=== PATIENT | female | born 1960 | race Caucasian/White ===

== ENCOUNTER 2021-05-18 00:26 | Outpatient (CLI) | payer BC, SELFPAY ==
--- NOTE | 2021-05-18 08:00 | DI.MAMMO_ITS ---
Exam(s) MAMMO SCREENING EXAM: MAMMO SCREENING CLINICAL HISTORY: SCREENING FOR BREAST CANCER Z12.39 TECHNIQUE: Bilateral full field digital CC and MLO mammographic images were obtained with 3D tomosyn thesis and utilizing computer aided detection (CAD). COMPARISON: Available for comparison. FINDINGS: Masses/Architectural Distortion: None seen. Microcalcifications: No suspicious pleomorphic-type are seen. Skin Thickening/Nipple Retraction: None. IMPRESSION: 1. No significant interval change with no specific features of malignancy noted. 2. Unless there is more urgent need, screening mammography is recommended, as per [employer] guidelines. BI-RADS Category 1 - Negative Breast Density - Category C - Heterogeneously dense Breast density category C or D implies that the patient has dense breast tissue. Dense breast tissue is very common and is not abnormal but dense breast tissue can make it harder to find cancer on a ma mmogram. Also, dense breast tissue may increase their breast cancer risk. This information about the result of the mammogram report was provided to the patient to raise their awareness. Use this report when you speak with the patient about their risks for breast cancer, which includes their family hist ory. At that time, you may recommend for more screening tests (Ultrasound or MRI) as they might be us eful based on their risk. A negative radiographic report should not delay biopsy if a dominant or clinically suspicious mass is present. Up to ten percent of cancers are not identified on mammography. A negative report may reinforce clinical impression. Adenosis and dense breasts may obscure an underlying neoplasm. False positive reports average 6 to 10%. Patient will receive a letter notifying them of these results.
== END 2021-05-18 00:46 ==
PROVIDERS: Visit Provider Nurse Practitioner
DX: Z12.31 Encounter for screening mammogram for malignant neoplasm of breast (principal)
CPT/HCPCS: 77063; 77067

== ENCOUNTER 2022-02-25 12:44 | Outpatient (REF) | payer BC, SELFPAY ==
[2022-02-25 15:07] LABS: Anion Gap 10.4 mmol/L (3-11); BUN 16 mg/dL (7-18); CO2 29.6 mmol/L (21.0-32.0); CREATININE 0.7 mg/dL (0.55-1.02); Calcium 10.3 mg/dL (8.5-10.1); Calculated LDL 164 mg/dL (<100); Chloride 102 mmol/L (98-107); Cholesterol 280 mg/dL (<200); Estimated GFR 98.95 (mL/min/1.73m2); Glucose 98 mg/dL (74-106); HDL Cholesterol 103 mg/dL (40-60); Potassium 4.2 mmol/L (3.5-5.1); Sodium 142 mmol/L (136-145); Triglyceride 66 mg/dL (<150)
[2022-02-25 15:26] LABS: Vitamin D 25 Total 28.3 ng/mL (30-100)
== END 2022-02-25 12:45 | disposition home or self-care (01) ==
LOC: NCHCN 12:44
PROVIDERS: Visit Provider Nurse Practitioner Family
DX: H00.019 Hordeolum externum unspecified eye, unspecified eyelid (principal); H01.009 Unspecified blepharitis unspecified eye, unspecified eyelid; M47.816 Spondylosis without myelopathy or radiculopathy, lumbar region; G43.909 Migraine, unspecified, not intractable, without status migrainosus; E78.5 Hyperlipidemia, unspecified; E55.9 Vitamin D deficiency, unspecified
CPT/HCPCS: 80048; 80061; 82306

== ENCOUNTER 2022-11-10 15:42 | Outpatient (REF) | payer BC, SELFPAY ==
[2022-11-10 16:15] LABS: Abs Immature Grans 0.04 10^3/uL (0.0-0.06); Absolute Basophil Count 0.04 10^3/uL (0.0-0.2); Absolute Eosinophil Count 0.09 10^3/uL (0.0-0.7); Absolute Lymphocyte Count 0.87 10^3/uL (1.2-3.4); Absolute Monocyte Count 0.56 10^3/uL (0.1-0.8); Absolute Neutrophil Count 7.33 10^3/uL (1.2-6.7); Basophils % 0.4; HGB 11.5 g/dL (11.2-15.7); Immature Grans % 0.4; Lymphocytes % 9.7; MCH 30.5 pg (27.0-33.0); MCHC 32.9 % (32.0-36.0); MCV 93 fL (80-95); MPV 10.3 fL (8.0-11.0); Monocytes % 6.3; Neutrophils % 82.2; Platelet Count 315 10^3/uL (130-400); RBC 3.77 10^6/uL (3.93-5.22); RDW 11.8 % (11.7-14.6); RDW-SD 40.2 fL; WBC 8.93 10^3/uL (4.4-10.8)
[2022-11-10 16:23] LABS: Bilirubin Small (Negative); Blood Small (Negative); Clarity Clear (Clear); Glucose Negative (Negative); Ketones 80 mg/dL (Negative); Leukocyte Esterase Negative (Negative); Nitrite Negative (Negative); pH 5.5 (5-8)
[2022-11-10 16:42] LABS: ALT 24 U/L (14-59); AST 22 U/L (15-37); Albumin 3.5 g/dL (3.4-5.0); Alkaline Phosphatase 98 U/L (46-116); Anion Gap 8.1 mmol/L (3-11); BUN 13 mg/dL (7-18); Bilirubin, Total 0.5 mg/dL (0.2-1.0); CO2 28.9 mmol/L (21.0-32.0); CREATININE 0.7 mg/dL (0.55-1.02); Calcium 9.5 mg/dL (8.5-10.1); Chloride 100 mmol/L (98-107); Estimated GFR 98.34 (mL/min/1.73m2); Glucose 132 mg/dL (74-106); Potassium 3.8 mmol/L (3.5-5.1); Sodium 137 mmol/L (136-145); TSH (W/Ref FT4) 1.12 uIU/mL (0.36-3.74)
[2022-11-10 17:30] LABS: Bacteria Few HPF (Negative); C & S Indicated? No/Sq. Contamination; Casts Negative LPF (Negative); Crystals Negative HPF (Negative); Epithelial Cells Moderate HPF (Negative); Mucus Moderate (Negative)
== END 2022-11-10 15:43 | disposition home or self-care (01) ==
LOC: NCHCN 15:42
PROVIDERS: Visit Provider Nurse Practitioner Family
DX: R05.1 Acute cough (principal); R53.83 Other fatigue; R50.9 Fever, unspecified
CPT/HCPCS: 80053; 81003; 81015; 84443; 85025

== ENCOUNTER 2022-11-11 16:02 | Outpatient (CLI) | payer BC, SELFPAY ==
--- NOTE | 2022-11-11 13:15 | DI.RAD_ITS ---
Exam(s) XR CHEST 2V PA LATERAL EXAM: XR CHEST 2V PA LATERAL CLINICAL HISTORY: COUGH R05.1 FEVER CHILLS R50.9. TECHNIQUE: 2D digital imaging was performed. COMPARISON: No exams were available for comparison FINDINGS: 2 views: Heart size is normal. The mediastinum is not widened. Lungs are clear. No infiltrates nor pleural effusions. IMPRESSION: No acute pulmonary findings. DATA REPOSITORY: RADIATION DOSE DELIVERED:
== END 2022-11-11 16:22 ==
LOC: DI 16:02
PROVIDERS: Visit Provider Nurse Practitioner Family
DX: R05.1 Acute cough (principal); R50.9 Fever, unspecified
CPT/HCPCS: 71046

== ENCOUNTER 2023-03-08 20:20 | Outpatient (REF) | payer BC, SELFPAY ==
[2023-03-08 19:07] LABS: Calculated LDL 172 mg/dL (<100); Cholesterol 291 mg/dL (<200); HDL Cholesterol 109 mg/dL (40-60); Triglyceride 52 mg/dL (<150)
== END 2023-03-08 20:21 | disposition home or self-care (01) ==
LOC: NCHCN 20:20
PROVIDERS: Visit Provider Nurse Practitioner Family
DX: L29.2 Pruritus vulvae (principal); N89.8 Other specified noninflammatory disorders of vagina; Z13.220 Encounter for screening for lipoid disorders
CPT/HCPCS: 80061; 87480; 87510; 87660

== ENCOUNTER → 2023-03-29 00:49 | Outpatient (CLI) | payer BC, SELFPAY ==
--- NOTE | 2023-03-29 08:05 | DI.MAMMO_ITS ---
Exam(s) MAMMO SCREENING EXAM: MAMMO SCREENING CLINICAL HISTORY: SCREENING, Z12.39. TECHNIQUE: Bilateral full field digital CC and MLO mammographic images were obtained with 3D tomosyn thesis and utilizing computer aided detection (CAD). COMPARISON: Prior mammograms were reviewed. FINDINGS: There has been no significant change in the appearance and distribution of the fibroglandular tissue. There are no new spiculated masses nor malignant appearing microcalcification groups. Benign-appearing nodules again noted bilaterally in the lateral aspect of both breasts, probably mariah gn intramammary lymph nodes. There is no significant architectural distortion nor skin thickening-retraction. IMPRESSION: No radiographic evidence of malignancy. BI-RADS Category 1 - Negative Breast Density - Category C - Heterogeneously dense Breast density Category C or D implies that the patient has dense breast tissue. Dense breast tissue can make it harder to find cancer on a mammogram. Dense breast tissue is also associated with an incr eased risk of breast cancer. This information about the result of the mammogram report was provided to the patient to raise their awareness. Use this report when you speak with the patient about their risks for breast cancer, which includes their family history. At that time, you may recommend additional screening tests (Ultrasoun d or MRI) as these tests may add significant information. A negative radiographic report should not delay biopsy if a dominant or clinically suspicious mass is present. Up to ten percent of cancers are not identified on mammography. A negative report may reinforce clinical impression. Adenosis and dense breasts may obscure an underlying neoplasm. False positive reports average 6 to 10%. Patient will receive a letter notifying them of these results.
== END ==
PROVIDERS: Visit Provider Nurse Practitioner Family
DX: Z12.31 Encounter for screening mammogram for malignant neoplasm of breast (principal)
CPT/HCPCS: 77063; 77067

== ENCOUNTER 2024-04-11 00:37 | Outpatient (CLI) | payer BC, SELFPAY ==
--- NOTE | 2024-04-11 13:31 | DI.RAD_ITS ---
Exam(s) XR FOOT RT COMPLETE EXAM: XR FOOT RT COMPLETE CLINICAL HISTORY: Right foot pain,M79.671. TECHNIQUE: 2D digital imaging was performed. COMPARISON: No exams were available for comparison FINDINGS: 3 views No evidence of acute fracture or diastasis of the Lisfranc joint. However, there is significant dege nerative changes in the 1st tarsometatarsal joint, this being the articulation between the base of th e great toe metatarsal and the medial cuneiform. Other tarsometatarsal joints appear unremarkable. There are minimal degenerative changes in the metatarsophalangeal joint of the great toe. Other MTP joints appear unremarkable as do the interphalangeal joints of all toes. No findings seen in the hin dfoot. No inferior calcaneal spur. No pes planus. IMPRESSION: The main finding here is significant degenerative change in the 1st tarsometatarsal joint, this being the articulation between the medial cuneiform and the base of the great toe metatarsal. DATA REPOSITORY: RADIATION DOSE DELIVERED:
== END 2024-04-11 00:57 ==
LOC: DI 00:37
PROVIDERS: PCP Nurse Practitioner Family; Visit Provider Podiatrist
DX: M79.671 Pain in right foot (principal)
CPT/HCPCS: 73630

== ENCOUNTER 2024-05-08 00:44 | Outpatient (CLI) | payer BC, SELFPAY ==
--- NOTE | 2024-05-08 14:20 | DI.RAD_ITS ---
Exam(s) XR FOOT LT COMPLETE EXAM: XR FOOT LT COMPLETE CLINICAL HISTORY: Pain in left foot,m79.672. TECHNIQUE: 2D digital imaging was performed. COMPARISON: CR XR FOOT RT COMPLETE from 04/11/2024 FINDINGS: 3 views No evidence of fracture or diastasis of the Lisfranc joint. There are bony excrescences off of both medial lateral aspects of the base of the great toe metatarsa l but without prominent narrowing of the joint space, as is evident on recent films of the opposite-r ight side. On the lateral aspect of the foot there is a slightly expansile cystic lesion off the proximal latera l aspect of the cuboid bone, best seen on the oblique view. There does not appear to be joint space narrowing at the adjacent calcaneocuboid joint. IMPRESSION: 1. There is a mildly expansile cystic bone lesion measuring approximately 8 x 8 cm on the lateral as pect of the proximal cuboid bone (lateral aspect of the foot). This is most probably not related to degenerative change as there is no narrowing of the adjacent calcaneocuboid joint. Similar finding i s not seen in the opposite-right foot. Recommend follow-up MRI. There are small bony excrescences of both medial and lateral aspects of the base of the great toe met atarsal. Probably developmental as similar but less findings seen in the opposite-right foot on the lateral aspect of the base of the great toe metatarsal of the right foot. DATA REPOSITORY: RADIATION DOSE DELIVERED:
== END 2024-05-08 01:04 ==
LOC: DI 00:44
PROVIDERS: PCP Nurse Practitioner Family; Visit Provider Podiatrist
DX: M79.671 Pain in right foot (principal); M79.672 Pain in left foot
CPT/HCPCS: 73630

== ENCOUNTER 2024-06-04 01:30 | Outpatient (CLI) | payer BC, SELFPAY ==
--- NOTE | 2024-06-04 07:00 | DI.MRI_ITS ---
Exam(s) MR LOWER JOINT LT WO/W EXAM: MR LOWER JOINT LT WO/W CLINICAL HISTORY: bone tumor,neoplasm lt foot, d49.2. TECHNIQUE: Multiplanar multisequence MRI was performed. CONTRAST MATERIAL: IV Contrast: 11 mL of Dotarem contrast administered. COMPARISON: Plain films 08 May 2024 FINDINGS: BONES/JOINTS: No evidence of fracture. No evidence of suspicious bone lesion. Small area of sclerosi s at the lateral proximal cuboid. No joint space narrowing identified. No joint effusion identified. LIGAMENTS: The medial and lateral collateral ligaments are intact. MUSCULOTENDINOUS STRUCTURES: Visualized portion of the planar fascia is unremarkable. The visualized intrinsic muscles and tendons of the foot are unremarkable. SOFT TISSUES: Unremarkable. ENHANCEMENT: No suspicious enhancement identified. IMPRESSION: No evidence of fracture or suspicious bony lesion. No tendon tear identified. DATA REPOSITORY:
[2024-06-04] MEDS: Gadoterate meglumine 20 ML SYRINGE 11 ML IVP (13:20)
[2024-06-04] MEDS: Normal Saline Flush 10 ML SYR IVP (13:21)
== END 2024-06-04 01:50 ==
LOC: DI 01:30
PROVIDERS: PCP Nurse Practitioner Family; Visit Provider Podiatrist
DX: D49.2 Neoplasm of unspecified behavior of bone, soft tissue, and skin (principal)
CPT/HCPCS: 73723

== ENCOUNTER 2024-07-31 14:23 | Outpatient (REF) | payer BC, SELFPAY ==
--- NOTE | 2024-07-31 12:00 | PAPFT_PTH ---
PATIENT: Arielle Castro LOC: NCN #:[id number] AGE/SX: 64/F ROOM: RE07/31/[address]: Mariana Loo : 1960 BED: DIS: 07/31/2024 SPEC #: [id number] RECD: 07/31/24 17:48 STATUS: DOTTIE REQ #: [id number] LYNN: 07/31/24 12:[address]: Mariana Loo DEPT: [facility] Cytology RECD BY: Shavon Spain Tissues: 1 - CX/ENDOCX FOR PAP SMEARS Procedures: PAP THIN PREP/UVM Screening HPV DNA PROBE Comments: [id number] (HPV 16 & 18/45)
[2024-07-31 16:21] LABS: Abs Immature Grans 0.01 10^3/uL (0.0-0.06); Absolute Basophil Count 0.02 10^3/uL (0.0-0.2); Absolute Eosinophil Count 0.06 10^3/uL (0.0-0.7); Absolute Lymphocyte Count 0.43 10^3/uL (1.2-3.4); Absolute Monocyte Count 0.35 10^3/uL (0.1-0.8); Absolute Neutrophil Count 3.96 10^3/uL (1.2-6.7); Basophils % 0.4 %; Eosinophils % 1.2 %; HCT 36.8 % (36.0-46.0); Immature Grans % 0.2 %; Lymphocytes % 8.9 %; MCH 30.8 pg (27.0-33.0); MCHC 32.6 % (32.0-36.0); MCV 95 fL (80-95); MPV 11.1 fL (8.0-11.0); Monocytes % 7.2 %; Neutrophils % 82.1 %; Platelet Count 191 10^3/uL (130-400); RBC 3.89 10^6/uL (3.93-5.22); RDW 12.8 % (11.7-14.6); RDW-SD 44.7 fL; WBC 4.83 10^3/uL (4.4-10.8)
[2024-07-31 16:48] LABS: ALT 23 U/L (14-59); AST 23 U/L (15-37); Alkaline Phosphatase 72 U/L (46-116); Anion Gap 9.6 mmol/L (3-11); BUN 15 mg/dL (7-18); Bilirubin, Total 0.48 mg/dL (0.2-1.0); CO2 27.4 mmol/L (21.0-32.0); CREATININE 0.9 mg/dL (0.55-1.02); Calcium 9.4 mg/dL (8.5-10.1); Calculated LDL 150 mg/dL (<100); Chloride 105 mmol/L (98-107); Cholesterol 271 mg/dL (<200); Estimated GFR 71.83 (mL/min/1.73m2); Glucose 103 mg/dL (74-106); HDL Cholesterol 110 mg/dL (40-60); Potassium 3.8 mmol/L (3.5-5.1); Sodium 142 mmol/L (136-145); TSH (W/Ref FT4) 0.94 uIU/mL (0.36-3.74); Total Protein 7.4 g/dL (6.4-8.2); Triglyceride 58 mg/dL (<150)
== END 2024-07-31 14:24 | disposition home or self-care (01) ==
LOC: NCHCN 14:23
PROVIDERS: PCP Nurse Practitioner Family; Visit Provider Nurse Practitioner Family
DX: R00.0 Tachycardia, unspecified (principal); R53.83 Other fatigue; Z13.220 Encounter for screening for lipoid disorders; Z11.51 Encounter for screening for human papillomavirus (HPV); Z01.419 Encounter for gynecological examination (general) (routine) without abnormal findings
CPT/HCPCS: 80053; 80061; 88142; 84443; 85025; 87624

== ENCOUNTER 2024-08-07 13:52 | Outpatient (CLI) | payer BC, SELFPAY ==
[2024-08-07 22:39] LABS: CEA <0.5 ng/mL (See Note)
[2024-08-08 10:40] LABS: CA 19-9 7 U/mL (<35)
[2024-08-08 12:01] LABS: CA 125 3 U/mL (<30)
== END 2024-08-07 13:53 | disposition home or self-care (01) ==
LOC: LBO 13:53
PROVIDERS: PCP Nurse Practitioner Family; Visit Provider Obstetrics & Gynecology
DX: R19.04 Left lower quadrant abdominal swelling, mass and lump (principal); N88.8 Other specified noninflammatory disorders of cervix uteri
CPT/HCPCS: 36415; 86304; 82378; 86301

== ENCOUNTER 2024-08-21 00:58 | Outpatient (CLI) | payer BC, SELFPAY ==
--- NOTE | 2024-08-21 | DI.MAMMO_ITS ---
Exam(s) MAMMO SCREENING EXAM: MAMMO SCREENING CLINICAL HISTORY: Screening, Z12.31 TECHNIQUE: Bilateral full field digital CC and MLO mammographic images were obtained with 3D tomosyn thesis and utilizing computer aided detection (CAD). COMPARISON: Available for comparison. FINDINGS: Masses/Architectural Distortion: No suspicious masses or areas of architectural distortion are seen. Microcalcifications: No suspicious pleomorphic-type are seen. Skin Thickening/Nipple Retraction: None. IMPRESSION: 1. No significant interval change with no specific features of malignancy noted. 2. Unless there is more urgent need, screening mammography is recommended, as per [employer] guidelines. BI-RADS Category 1 - Negative Breast Density - Category B - Scattered areas of fibroglandular density Breast density category C or D implies that the patient has dense breast tissue. Dense breast tissue is very common and is not abnormal but dense breast tissue can make it harder to find cancer on a ma mmogram. Also, dense breast tissue may increase their breast cancer risk. This information about the result of the mammogram report was provided to the patient to raise their awareness. Use this report when you speak with the patient about their risks for breast cancer, which includes their family hist ory. At that time, you may recommend for more screening tests (Ultrasound or MRI) as they might be us eful based on their risk. A negative radiographic report should not delay biopsy if a dominant or clinically suspicious mass is present. Up to ten percent of cancers are not identified on mammography. A negative report may reinforce clinical impression. Adenosis and dense breasts may obscure an underlying neoplasm. False positive reports average 6 to 10%. Patient will receive a letter notifying them of these results.
== END 2024-08-21 01:18 ==
LOC: DI 00:58
PROVIDERS: PCP Nurse Practitioner Family; Visit Provider Nurse Practitioner Family
DX: Z12.31 Encounter for screening mammogram for malignant neoplasm of breast (principal); R92.323 Mammographic fibroglandular density, bilateral breasts
CPT/HCPCS: 77063; 77067

== ENCOUNTER 2024-08-30 00:58 | Outpatient (CLI) | payer BC, SELFPAY ==
--- NOTE | 2024-08-30 06:45 | DI.MRI_ITS ---
Exam(s) MR PELVIS WO/W EXAM: MR PELVIS WO/W CLINICAL HISTORY: pelvic mass,LLQ,R19.04 TECHNIQUE: Multiplanar multisequence MRI of Pelvis was performed. CONTRAST MATERIAL: IV Contrast: 11 mL of Dotarem contrast administered. COMPARISON: US US PELVIS TRANSVAGINAL from 08/02/2024 FINDINGS: Uterus: The cervix is displaced toward the left. The uterus is replaced by lobulated intermediate T1 low T2 signal masses a. the borders are circumscribed age. The signal is mainly homogeneous. Mild to moderate uniform enhancement. Findings are consistent with fibroids. There is a fibroid directly small of above the cervix measuring 3 cm. There is a large fibroid measuring 7.8 by 8.3 by 7.3 cm w hich is eccentric toward the right. Ovaries: Normal bilaterally. Bladder: Normal Bowel: Unremarkable Lymph nodes: No adenopathy Bones: There is no fracture or contusion pattern. No significant joint effusion or labral injury is present. No bone marrow edema is seen. The SI joints and symphysis pubis are well maintained. Musculotendinous structures: Musculotendinous structures demonstrate no significant abnormality. Soft tissues: IMPRESSION: Findings consistent with large right-sided uterine fibroid. No evidence of ovarian mass. DATA REPOSITORY:
[2024-08-30] MEDS: Normal Saline Flush 10 ML SYR IVP (09:15)
[2024-08-30] MEDS: Gadoterate meglumine 20 ML SYRINGE 11 ML IVP (09:15)
== END 2024-08-30 01:18 ==
LOC: DI 00:59
PROVIDERS: PCP Nurse Practitioner Family; Visit Provider Obstetrics & Gynecology
DX: R19.04 Left lower quadrant abdominal swelling, mass and lump (principal)
CPT/HCPCS: 72197

== ENCOUNTER 2025-02-04 15:50 | Outpatient (REF) | payer BC, SELFPAY | END 2025-02-04 15:51 | disposition home or self-care (01) | LOC: LBN 15:50 | PROVIDERS: PCP Nurse Practitioner Family; Visit Provider Physician Assistant | DX: B34.9 Viral infection, unspecified (principal) | CPT/HCPCS: 87070 ==

== ENCOUNTER 2025-03-20 06:14 | Day surgery (SDC) | payer BC, SELFPAY ==
--- NOTE | 2025-03-19 08:20 | W.PM.DSUDISC ---
Discharge Plan Disposition Patient Disposition: Home Discharge Details Attending Provider: Ofelia Adams Primary Care Provider: Orestes Hewitt Home Meds and New Rx's Prescriptions: No Action ropxnfxtvq-zfadnrqittkqd-rocw [Fioricet] 50-300-40 mg capsule 1 cap PO Q8H PRN bisacodyl 5 mg tablet,delayed release (DR/EC) 5 mg PO ONCE Qty: 4 0RF Rx Instructions: Per Colonoscopy bowel prep instructions polyethylene glycol 3350 17 gram/dose powder 238 g PO ONCE Qty: 238 0RF Rx Instructions: For Colonoscopy bowel prep, as directed by office im-5-suv-epa-fish oil-vit D3 [phone] vj-mu-kz-unit capsule 1 cap PO DAILY alprazolam 0.25 mg tablet 0.25 mg PO QHS PRN valacyclovir [Valtrex] 1 gram tablet 1,000 mg PO TID PRN
[2025-03-20 06:32] VITALS: BP 142/88; PULSE 73; RESP 16; TEMP 36.7; O2SAT 100
[2025-03-20] MEDS: Lactated Ringers 1,000 ML 80 ML IV (07:00)
--- NOTE | 2025-03-20 07:05 | W.ANESPRE ---
General Info Date of Service Date Performed: 03/20/25 Height: 4 ft 11 in Weight: 52.2 kg Body Mass Index (BMI): 23.2 Surgical Procedure: Operation Date: 03/20/25 07:35 Proposed Procedure Side Surgeon p Colonoscopy Ofelia Adams MD Meds Allergies and Home Medications Allergies Allergy/AdvReac Type Severity Reaction Status Date / Time No Known Allergies Allergy Verified 03/20/25 06:35 Home Medication ?Medication ?Instructions ?Recorded qzurvjjtcr-jpromizzalnun-cwkpfawt 1 cap PO Q8H PRN 07/29/20 50 mg-300 mg-40 mg capsule (Fioricet) omega-3 650 mg-dha 400 mg-epa 200 1 cap PO DAILY 03/30/23 mg-fish oil-vit D3 300 unit capsule alprazolam 0.25 mg tablet 0.25 mg PO QHS PRN 10/15/24 bisacodyl 5 mg tablet,delayed 5 mg PO ONCE Colonoscopy Bowel 02/28/25 release Prep #4 tabs polyethylene glycol 3350 17 238 g PO ONCE #238 grams 02/28/25 gram/dose oral powder valacyclovir 1 gram tablet 1,000 mg PO TID PRN 03/18/25 (Valtrex) Current Visit Medications: Current Medications Generic Name Dose Route Start Last Admin Trade Name Freq PRN Reason Stop Dose Admin Ringer's Solution 1,000 mls @ 80 mls/hr 03/20/25 06:00 03/20/25 07:00 IV 03/20/25 23:59 80 mls/hr INFUSION SUKHDEV Administration IV Miscellaneous Supplies 1 each 03/20/25 06:00 Iv Access IV 03/20/25 23:59 DIRECTED SUKHDEV Sodium Chloride 0 ml 03/20/25 06:00 Normal Saline Flush 10 Ml Syr IV 03/20/25 23:59 PRN PRN Sodium Chloride 0 ml 03/20/25 06:00 Normal Saline 10 Ml Vial IJ 03/20/25 23:59 DIRECTED PRN Sterile Water 0 ml 03/20/25 06:00 Water,Injection,Sterile 10 Ml Vial IJ 03/20/25 23:59 DIRECTED PRN PFSH Active Problems Active Problems: Problem Status Onset Code Vitamin D deficiency Acute E55.9 Myelopathy Acute G95.9 Lumbar spondylolysis Acute M43.06 Tachycardia Acute R00.0 GERD (gastroesophageal reflux disease) Chronic K21.9 Chronic blepharitis Acute H01.009 Hyperlipidemia Acute E78.5 Chronic insomnia Acute F51.04 Recurrent oral herpes simplex Acute B00.2 Arthritis of right foot Acute M19.071 Migraine Chronic G43.909 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 Has a hx. Tinnitus Asymptomatic microscopic hematuria Vaginal itching Right foot pain Surgical History Surgical History Hx of colonoscopy Tobacco Smoking/Tobacco Use Status: Never Passive smoking exposure: No Alcohol Alcohol Intake: current Alcohol intake frequency: 0-2 drinks per day Alcohol type: wine Substance Use Substance use: Never Substance use type: does not use Details: alcohol: t-3, couple glasses Vital Signs and Lab Results Vital Signs Most Recent Vital Signs in EMR: Most Recent Vital Signs Temp Pulse Resp BP Pulse Ox 36.7 C 73 16 142/88 H 100 03/20/25 06:32 03/20/25 06:32 03/20/25 06:32 03/20/25 06:32 03/20/25 06:32 Anesthesia Assessment and Plan Anesthesia History Personal History: No History of Anesthesia Complications Family History: No Family History of Anesthesia Complications Exercise Tolerance Exercise Tolerance: Metabolic Equivalents>4 Pertinent Negatives Pertinent Negatives: No Symptoms of GERD Cardiac & Pulmonary Exam Cardiac Exam: Normal S1/S2 Heart Sounds Pulmonary Exam: Clear Bilateral Breath Sounds Implantable Cardiac Device Does patient have a Pacemaker or an ICD?: No Airway Exam Known Difficult Airway: No Mallampati Class: 2 Mouth Opening: Normal (> 3cm) Thyromental Distance: Greater than 3 cm Neck Range of Motion: Full ROM Neck Circumference: Normal Teeth Condition: Normal Dentition ASA Classification ASA Score: ASA 2 Emergency Case?: No NPO Status NPO Status: NPO Clears >2 hours, Solids >8 hours Anesthesia Plan Resuscitation Status: Full Code Anesthesia Technique: General Anesthesia Airway Planned: Natural Airway Monitors Used: Standard Monitors
[2025-03-20 07:08] VITALS: BMI 23.2
--- NOTE | 2025-03-20 07:51 | BOWEL_PTH ---
PATIENT: Arielle Castro LOC: [facility] U#:[id number] AGE/SX: 64/F ROOM: RE03/20/[address]: Ofelia Adams : 1960 BED: DIS: 03/20/2025 SPEC #: [id number] RECD: 03/20/25 12:36 STATUS: DOTTIE REQ #: [id number] LYNN: 03/20/25 07:[address]: Ofelia Adams DEPT: Surgical Specimen RECD BY: Shavon Spain ENTERED: 03/20/25 12:36 SP TYPE: Bowel OTHR DR: Orestes Orourke DNP Tissues: 1 - BIOPSY BOWEL 2 - BIOPSY BOWEL Procedures: GROSS AND MICRO LEVEL 4 Comments: [id number]
[2025-03-20 08:04] VITALS: BP 122/78; PULSE 85; RESP 16; TEMP 36.3; O2SAT 97
--- NOTE | 2025-03-20 08:07 | W.PM.DSUDISC ---
Date of service: 03/20/25 Discharge Plan Disposition Patient Disposition: Home Condition: Good Discharge Details Reason For Visit: screening colonoscopy Attending Provider: Ofelia Adams Primary Care Provider: Orestes Hewitt Home Meds and New Rx's Prescriptions: Continued tyaswvkyla-wnyucecdkpsjl-qzii [Fioricet] 50-300-40 mg capsule 1 cap PO Q8H PRN ac-0-mui-epa-fish oil-vit D3 [phone] hc-fp-lg-unit capsule 1 cap PO DAILY alprazolam 0.25 mg tablet 0.25 mg PO QHS PRN valacyclovir [Valtrex] 1 gram tablet 1,000 mg PO TID PRN Discontinued bisacodyl 5 mg tablet,delayed release (DR/EC) 5 mg PO ONCE Qty: 4 0RF Rx Instructions: Per Colonoscopy bowel prep instructions polyethylene glycol 3350 17 gram/dose powder 238 g PO ONCE Qty: 238 0RF Rx Instructions: For Colonoscopy bowel prep, as directed by office Discharge Instructions Instructions: Diverticulosis (DC) Additional Instructions: Your colonoscopy went well today. You did have evidence of diverticulosis which are small outpouchings of the colon. He also had evidence of 2 small polyps which were removed and will be sent to pathology. We will contact you once the pathology has returned for when to repeat your colonoscopy. If you have any questions or concerns please contact the surgery office. 1. If tolerated, consume a soft, low fiber diet for 1-2 days. [address] Do not drive, drink alcohol, operate machinery, make critical decisions, or do activities that require coordination or balance for 24 hours. 3. Because air was put into your colon during the procedure, expelling air from your rectum (passing gas or farting) is normal. 4. You may not have a bowel movement for 1-3 days because of the colonoscopy prep. This is normal. 5. Go directly to the emergency room if you notice any of the following: Develop chills (warm to touch), or if you have a thermometer and your temperature is above 101 Difficulty breathing or difficultly swallowing Persistent vomiting Severe abdominal pain, other than gas cramps Severe chest pain Black, tarry stools Any bleeding ? exceeding one tablespoon 6. Call your physician if the site where your intravenous was started becomes red, swollen, painful, and warm to touch. 7. Your physician has reviewed your pre-procedure medications. Please continue to take those medications as previously ordered. You will be given specific information/education regarding any changes to your medications before leaving. Stand Alone Forms: Anesthesia Discharge InstJay Anne (DSU) Activity:: Activity as Tolerated Diet:: As Tolerated Discharge Orders Discharge Orders: Discharge Order (Routine); Ordered 03/20/25 Ordered By: Ofelia Adams
--- NOTE | 2025-03-20 08:11 | W.COLOREPORT ---
Date of service: 03/20/25 Time of Service: 08:11 Colonoscopy Report Date of procedure: 03/20/25 Pre-op diagnosis general: Screening colonscopy Procedure: Colonoscopy with polypectomy Surgeon: Ofelia Adams Anesthesia Type: General:No Airway Estimated blood loss (mL): 2 Pathology: other (Polyp at 110cm and polyp at 60cm ) Complications: None Disposition: PACU Indications: Patient is a 64-year-old female who presents for screening colonoscopy. She notes that she had a colonoscopy 10 years ago which was reported normal. Prep: Miralax/Dulcolax Procedure Start Time: 07:33 Procedure End Time: 08:00 Retraction Time: 11 Findings: Evidence of small internal hemorrhoids. Evidence of diverticulosis throughout the rectosigmoid colon mostly however right sided diverticulosis as well. 2 polyps were identified and removed with cold forceps. Procedure Description: The patient was brought to the endoscopy suite and placed in the left lateral decubitus position. After induction of IV sedation, a digital rectal exam was performed. Digital exam was normal []. The colonoscope was then passed to the cecum with some difficulty due to looping. Cecal intubation was confirmed by the identification of the appendiceal orifice and the ileocecal valve. Upon withdrawing the colonoscope, all mucosal surfaces were inspected. The prep was noted to be adequate. Two small polyps were identified. One at 110cm, which was removed using cold forceps in its entirety. One at 60cm, which was removed using cold forceps in its entirety. Specimens were retrieved for pathological analysis. There was no other evidence of mucosal abnormality, polyp or cancer. There was evidence of diverticulosis mostly in the rectosigmoid colon however on the right side as well. Retroflexion in the rectum showed small internal hemorrhoids. The patient tolerated the procedure well with no complications. Postoperatively, the patient was transferred to the recovery room in stable condition. [place] Bowel Prep [place] Bowel Prep Right Colon: 3 Left Colon: 3 Transverse Colon: 3 Total Score: 9
--- NOTE | 2025-03-20 08:13 | W.ANESPOSTOP ---
Postoperative Evaluation Date, Time and Location Date Performed: 03/20/25 Time Performed: 08:20 Patient Location: Day Surgery Unit Vital Signs Most Recent Imported Vital Signs: Most Recent Vital Signs Temp Pulse Resp BP Pulse Ox 36.3 C L 85 16 122/78 97 03/20/25 08:04 03/20/25 08:04 03/20/25 08:04 03/20/25 08:04 03/20/25 08:04 Pain Score Most Recent Pain Score: Most Recent Pain Score Pain Level 2 03/20/25 08:04 Assessment Mental Status: Awake (Alert & Oriented to Patient Baseline) Airway and Respiratory Function: Patent airway with normal (patient baseline) respiratory exam Cardiovascular Function: Hemodynamically Stable Hydration Status: Adequately Hydrated Nausea & Vomiting: No Nausea or Vomiting Pain: Pain is tolerable per patient (Surgeon aware) Peripheral Nerve Block: Patient did not receive a nerve block
[2025-03-20 08:32] VITALS: BP 130/69; PULSE 66; RESP 16; TEMP 36.2; O2SAT 100
== END 2025-03-20 08:47 | disposition home or self-care (01) ==
PROVIDERS: PCP Nurse Practitioner Family; Visit Provider Student in an Organized Health Care Education/Training Program
PROC: 0DJD8ZZ Inspection of Lower Intestinal Tract, Via Natural or Artificial Opening Endoscopic (ICD-10-PCS; CPT 45378; principal; 2025-03-20 07:30)
DX: Z12.11 Encounter for screening for malignant neoplasm of colon (principal); D12.3 Benign neoplasm of transverse colon
CPT/HCPCS: 45380; 88305; J2704